=== PATIENT | female | born 1985 | race Caucasian/White ===

== ENCOUNTER → 2017-04-25 | Outpatient (CLI) | payer MEDICAID ==
[~2017-04-25] MED LIST: IRON TABLETS325 MG PO; KEFLEX 500MG.500 MG PO; MOTRIN400 MG PO; NIZORAL 2%15 GM/TUBE TP; PERCOCET 5/3251 EACH PO; PRENATAL PLUS1 TA1 PO; RANITIDINE 150150 MG PO
== END ==
LOC: LAB 08:32
DX: Z32.00 Encounter for pregnancy test, result unknown (principal)